=== PATIENT | female | born 1965 | race Caucasian/White ===

== ENCOUNTER 2021-07-05 01:22 | Inpatient (IN) | payer OTHER ==
[~2021-07-05] VITALS: Ht 152.4 cm; Wt 101.8 kg
--- NOTE | 2021-07-05 04:14 | NUR ---
Pt. arrived to the floor via ems, pt. able to transfer self to bed. Pt. is A&OX3, assessment complete. INT to rt. ac X2, patent. Pt. denies pain or other needs, call light within reach.
[2021-07-05] MEDS ORDERED: CYMBALTA 60MG60 MG PO (04:16)
[2021-07-05] MEDS ORDERED: HCTZ 25MG TAB25 MG PO (04:16)
[2021-07-05] MEDS ORDERED: TENORMIN 2525 MG/TAB PO (04:17)
[2021-07-05] MEDS ORDERED: TYLENOL 500MG500 MG PO (04:18)
[2021-07-05 04:26] VITALS: BP 94/71; PULSE 95; TEMP 98.2
[2021-07-05 05:28] LABS: COLLECTION METHOD CATHETER
[2021-07-05 05:40] LABS: MUCOUS Present (NOT PRESENT); PH 6 (5-8); SQUAMOUS EPITHELIAL None Seen /hpf (0-10); URINE APPEARANCE Turbid (CLEAR/HAZY); URINE BACTERIA Many /hpf (NONE SEEN); URINE BILIRUBIN Negative (NEGATIVE); URINE BLOOD 2+ (NEGATIVE); URINE COLOR Amber (YELLOW); URINE GLUCOSE Negative (NEGATIVE); URINE KETONE Negative (NEGATIVE); URINE LEUKOCYTE ESTERASE 2+ (NEGATIVE); URINE NITRATE Negative (NEGATIVE); URINE PROTEIN(semi-quant) 2+ (NEGATIVE); URINE RBC 20-50 /hpf (0-2)
[2021-07-05 06:17] LABS: HEMOGLOBIN 10.5 g/dl (12.5-16.0); MEAN CELL VOLUME 89 fl (80.0-100.0); MEAN CORPUSCULAR HEMOGLOBIN 30 pg (27-31); MEAN CORPUSCULAR HGB CONC 33 g/dl (33.0-37.0); MEAN PLATELET VOLUME 9.2 fl (7.4-10.4); PLATELET COUNT 595 K/mm3 (130-400); RED BLOOD COUNT 3.56 M/mm3 (4.10-5.30); REDCELL DISTRIBUTION WIDTH-CV 14.5 % (11.5-14.5)
[2021-07-05 06:23] LABS: HEMATOCRIT 31.7 % (37.0-47.0)
[2021-07-05 06:38] LABS: CALCIUM 8.5 mg/dL (8.4-10.2); CREATININE, serum 0.7 mg/dL (0.57-1.11)
[2021-07-05 06:52] LABS: POTASSIUM 2.5 mmol/L (3.5-4.5)
[2021-07-05 06:53] LABS: TROPONIN-I 1.362 ng/mL (0.00-0.033)
[2021-07-05 07:01] LABS: BAND 10 % (0-10); EOSINOPHIL 1 % (0-4); LYMPHOCYTE 23 % (20.0-51.0); NEUTROPHILS 62 % (42.0-75.2)
[2021-07-05 07:02] LABS: PLATELET ESTIMATE INCREASED (NORMAL)
[2021-07-05 07:03] LABS: STOMATOCYTE 1+
[2021-07-05 08:00] VITALS: BP 90/44; PULSE 105; TEMP 98
--- NOTE | 2021-07-05 08:19 | NUR ---
Pt assessment complete. Pt is laying in bed upon entry, she is A/O x4. Her breathing is even and unlabored on RA. Pt denies SOB. No pain at this time. She denies any N/V, denies any diarrhea. Currently NPO, discussed POC with patient who verbalizes understanding. IVF infusing wihtout issues. No needs at this time. Call light within reach.
--- NOTE | 2021-07-05 10:26 | NUR ---
Initial visit; Patient thanked Lighting Director for offering God's blessings and keeping her in Lighting Director's prayers.
[2021-07-05 12:04] VITALS: BP 94/43; PULSE 100; TEMP 98
--- NOTE | 2021-07-05 13:32 | NUR ---
Mounter Automatic met with patient to discuss discharge planning. Patient lives alone in [place], [place] and sees Dr. Ramirez for primary care. Patient obtains medications from [facility] in [place] with no difficulties. Patient does not use any DME and is independent with ADLS. Patient expressed interest in designating her son, Jonathan (ph#[phone]) as DPOA-HC. When SW returned with the DPOA-HC form, patient was on the phone and asked SW to follow up later. SW attempted to follow up, however patient was asleep and did not wake after SW knocked. Discharge Plan: Home
[2021-07-05 15:26] VITALS: BP 96/59; PULSE 100; TEMP 98.6
[2021-07-05 19:36] VITALS: BP 104/55; PULSE 96; TEMP 98
--- NOTE | 2021-07-05 20:22 | NUR ---
Patient assessed at this time. Alert and oriented, and able to make needs known. Denies having pain and discomfort at this time. Peripheral IV to right AC with IV fluids running per orders. INT to right AC area as well. Potassium came back at 2.9. Orders placed to replace per protocol and started per orders. Updated patient on labs and treatment and voiced understanding. Denies having SOB and dyspnea. LS CTA. HRR. Telemetry in place. BSAx4. Denies abdominal pain and nausea at this time. Denies having loose stools today. Voices no questions, needs, or concerns at this time. IN bed with call light within reach.
[2021-07-05 23:43] VITALS: BP 107/57; PULSE 100; TEMP 98.8
[2021-07-06 03:50] VITALS: BP 125/71; PULSE 109; TEMP 98.7
--- NOTE | 2021-07-06 05:58 | NUR ---
Potassium replaced IV per protocol this shift. One IV site to right AC was painful and irritated, so IV taken out. No complaints regarding remaining IV site to right AC. Has denied having pain and discomfort this shift. Voices no questions, needs, or concerns at this time. States she is ready to eat. Has been NPO, but has had ice chips during the night. In bed with call light within reach.
[2021-07-06 06:57] LABS: HEMOGLOBIN 10.3 g/dl (12.5-16.0); MEAN CELL VOLUME 91 fl (80.0-100.0); MEAN CORPUSCULAR HEMOGLOBIN 30 pg (27-31); MEAN CORPUSCULAR HGB CONC 33 g/dl (33.0-37.0); MEAN PLATELET VOLUME 9.3 fl (7.4-10.4); PLATELET COUNT 622 K/mm3 (130-400); RED BLOOD COUNT 3.44 M/mm3 (4.10-5.30); REDCELL DISTRIBUTION WIDTH-CV 14.5 % (11.5-14.5)
[2021-07-06 06:58] LABS: HEMATOCRIT 31.3 % (37.0-47.0)
--- NOTE | 2021-07-06 07:00 | NUR ---
Bedside shift report received, assumed care for weight shifter.
[2021-07-06 07:14] LABS: CALCIUM 8.3 mg/dL (8.4-10.2); CREATININE, serum 0.64 mg/dL (0.57-1.11); MAGNESIUM 1.9 mg/dL (1.6-2.6); POTASSIUM 3.1 mmol/L (3.5-4.5)
[2021-07-06 07:39] LABS: BAND 3 % (0-10); EOSINOPHIL 1 % (0-4); LYMPHOCYTE 8 % (20.0-51.0); NEUTROPHILS 82 % (42.0-75.2)
[2021-07-06 07:40] LABS: MICROCYTOSIS 1+; PLATELET ESTIMATE INCREASED (NORMAL); POLYCHROMASIA 1+
[2021-07-06 07:48] LABS: TROPONIN-I 0.866 ng/mL (0.00-0.033)
[2021-07-06 07:52] VITALS: BP 129/61; PULSE 105; TEMP 98.4
--- NOTE | 2021-07-06 08:00 | NUR ---
Assessment complete. A&Ox3. Denies pain/nausea/shortness of breath. VS stable. Potassium 3.1 this AM-will replace per protocol. TELE reporting SR. NS@125ml/hr to left AC IV infusting without difficulty. Plan of care discussed for this shift to include meds/calling for questions/concerns. Verbalizes understanding/denies needs. Call light in reach. WIll monitor.
--- NOTE | 2021-07-06 10:30 | NUR ---
Clear liquid diet provided. Tolerating well without nausea. Denies current needs. Call light in reach. Will monitor.
[2021-07-06 12:10] VITALS: BP 107/47; PULSE 107; TEMP 98.5
--- NOTE | 2021-07-06 13:45 | NUR ---
Potassium infusion paused at this time for shower. collection technician notified and monitor removed. IV site wrapped with plastic. Will monitor.
--- NOTE | 2021-07-06 13:52 | NUR ---
stopped by but nothing needed at this time.
--- NOTE | 2021-07-06 14:30 | NUR ---
Bed linens changed. Back to bed at this time. Tele reapplied/potassium infusion started. Denies current needs. Call light in reach. Will monitor.
[2021-07-06 15:52] VITALS: BP 136/54; PULSE 99; TEMP 98.4
--- NOTE | 2021-07-06 16:22 | NUR ---
Dr Martinez notified of Culture and Sensitivity report faxed from [facility].
--- NOTE | 2021-07-06 17:05 | NUR ---
Patient had an uneventful day. Tolerated clear liquid diet with out N/V/Abd Pain. Tele reports SR to ST. Showered this shift-linens changed-tolerated well. Potassium replaced per protocol for 3.1. IV to right forearm flushes well-NS@75ml/hr infusing without difficulty. Denies current needs. Call light in reach. Will monitor.
[2021-07-06 19:48] VITALS: BP 128/54; PULSE 103; TEMP 98.6
[2021-07-06 23:47] VITALS: BP 134/72; PULSE 112; TEMP 98.7
[2021-07-07 03:54] VITALS: BP 122/63; PULSE 108; TEMP 98.7
--- NOTE | 2021-07-07 04:56 | NUR ---
Full body assessment completed and vital signs are WNL. Patient is A&OX3 and pleasant. Tolerating clear liquids this shift and is able to progress to full liquids/blenderized the morning of 07/07. Patient has been up to the bathroom multiple times throughout the night and walks with a steady gait without signs of weakness. Patient informed this nurse at approximately 0 that her mother is in the hospital at [place] and might not make it through tomorrow (07/07) and that she wants to be discharged [facility] in the morning. Hospitalist was informed. This nurse asked the patient if she was wanting to leave AMA, patient said no. Patient has had no complaints of pain throughout the shift. No other complaints were expressed, call light within reach.
--- NOTE | 2021-07-07 07:00 | NUR ---
Bedside shift report received, assumed care for dayshift.
--- NOTE | 2021-07-07 07:35 | NUR ---
Potassium currently infusing at 75mls/hr due to discomfort/burning to site running at 100ml/hr.
--- NOTE | 2021-07-07 07:42 | NUR ---
Assessment complete. A&Ox3. Denies pain/nausea/shortness of breath. VS stable-periods of tachycardia. AM potassium 3.0. Protocol initiated and first bag hung. Has tolerated diet thus far. Ordering full liquid this AM. TELE reporting SR. IV to right AC with NS@75ml/hr infusing without difficulty. Up out of bed independently. Steady gait. States her mother is in the hospital in [place] and is not expected to live through tonight. Very tearful and states she hopes she will be discharged so she can go be with her. Discussed low potassium level and initiating replacement right away and discussing with provider during rounds. Verbalizes understanding. Call light in reach. Will monitor.
[2021-07-07 07:45] VITALS: BP 142/56; PULSE 111; TEMP 98.4
[2021-07-07 08:03] LABS: HEMOGLOBIN 10.8 g/dl (12.5-16.0); MEAN CELL VOLUME 90 fl (80.0-100.0); MEAN CORPUSCULAR HEMOGLOBIN 30 pg (27-31); MEAN CORPUSCULAR HGB CONC 33 g/dl (33.0-37.0); MEAN PLATELET VOLUME 9.2 fl (7.4-10.4); PLATELET COUNT 688 K/mm3 (130-400); RED BLOOD COUNT 3.65 M/mm3 (4.10-5.30); REDCELL DISTRIBUTION WIDTH-CV 14.5 % (11.5-14.5)
--- NOTE | 2021-07-07 08:06 | NUR ---
Call from [employer] stating patients HR 130s-140s. This nurse to room. Patient returning to bed from bathroom. Sat on side of bed to eat breakfast. Denies pain/nausea/shortness of breath. VS stable. States her breakfast is nasty and it got her worked up and then she went to bathroom. Currently HR 106. Instructed to call with any s/s. Verbalizes understanding. Will call to see if the kitchen has anything else to offer for meal.
[2021-07-07 08:07] LABS: HEMATOCRIT 32.9 % (37.0-47.0)
[2021-07-07 08:10] LABS: ALBUMIN 2.2 gm/dL (3.5-5.0); CALCIUM 8.3 mg/dL (8.4-10.2); CREATININE, serum 0.61 mg/dL (0.57-1.11); PHOSPHOROUS 1.7 mg/dL (2.3-4.7)
[2021-07-07 08:54] LABS: EOSINOPHIL 1 % (0-4); LYMPHOCYTE 32 % (20.0-51.0); NEUTROPHILS 60 % (42.0-75.2)
[2021-07-07 08:56] LABS: HYPOCHROMIA 1+; PLATELET ESTIMATE INCREASED (NORMAL)
--- NOTE | 2021-07-07 09:20 | NUR ---
Noted to have a HR in the 140s on TELE monitor. Up to bathroom-had a BM. Seems more upset and short with staff. This nurse tried to discuss with patient but states she doesnt want to talk about it. Encouraged if she changed mind to let this nurse know. Verbalizes understanding. Call light in reach. Will monitor.
--- NOTE | 2021-07-07 10:30 | NUR ---
hyperbaric technician notified that patient is up to shower. Potassium/IV fluids paused and INT wrapped in plastic/taped. Instructed to call when done in shower to restart fluids/potassium infusions. Will monitor.
--- NOTE | 2021-07-07 11:03 | NUR ---
Out of shower at this time. TELE reapplied. Potassium/NS restarted to right AC INT-infusing without difficulty. Patient with questions on low fiber diet. Patient education printed and information provided.
[2021-07-07 11:43] VITALS: BP 107/49; PULSE 108; TEMP 98.3
--- NOTE | 2021-07-07 12:10 | NUR ---
Dr Martinez at bedside to see patient
--- NOTE | 2021-07-07 12:13 | NUR ---
cnc technician called with reports of HR in the 130s. Patient currently up to the bathroom. Denies chest pain/shortness of breath/nausea. VS remain stable. Will continue to monitor.
--- NOTE | 2021-07-07 12:23 | NUR ---
IV fluids DCd at this time per dr order.
--- NOTE | 2021-07-07 12:58 | NUR ---
Tolerated low fiber diet without nausea/pain. Resting in bed. Will monitor.
[2021-07-07 15:40] VITALS: BP 117/66; PULSE 108; TEMP 98.9
--- NOTE | 2021-07-07 16:32 | NUR ---
Patient had an uneventful day. Potassium was 3.0 this AM. Received replacement per protocol. INTd per dr order. Tolerating low fiber diet. Has been switched to PO antibiotics. HR up to 130-140s when up out of bed, otherwise 100s. Denied pain/nausea/shortness of breath. VS remained stable. Patient excited to DC home in AM. Denies current needs. Call light in reach. Will monitor.
[2021-07-07 19:25] VITALS: BP 126/81; PULSE 115; TEMP 99
[2021-07-07 23:43] VITALS: BP 130/58; PULSE 111; TEMP 99.7
[2021-07-08 03:43] VITALS: BP 136/65; PULSE 114; TEMP 99.5
--- NOTE | 2021-07-08 04:14 | NUR ---
RESTING QUIETLY/SLEEPING. NO C/O PAIN. NO N/V. INDEPENDENT IN ROOM.
[2021-07-08 06:56] LABS: CALCIUM 8.6 mg/dL (8.4-10.2); CREATININE, serum 0.66 mg/dL (0.57-1.11); MAGNESIUM 1.7 mg/dL (1.6-2.6); POTASSIUM 3.5 mmol/L (3.5-4.5)
[2021-07-08 07:19] VITALS: BP 114/67; PULSE 101; TEMP 98.6
--- NOTE | 2021-07-08 08:36 | NUR ---
Pt doing well this morning, no pain complaints. Pt is planning on going home today. Notified Danita HOPKINS as pt stated that she will need to leave by 1000 as that is the only time she will have a ride. Pt denies having any pain. No needs verbalized, call light within reach
[2021-07-08] MEDS ORDERED: ASPIRIN E.C. 8181 MG PO (09:13)
[2021-07-08] MEDS ORDERED: FLAGYL500 MG PO (09:18)
[2021-07-08] MEDS ORDERED: OMNICEF 300MG300 MG PO (09:19)
--- NOTE | 2021-07-08 09:21 | NUR ---
Materials Scientist attended clinical rounds with the team and patient to discharge home today. SW followed up with patient after rounds and patient denied any questions or concerns. SW offered to assist patient with completing DPOA-HC form. Patient declined but requested form. SW provided.
[2021-07-08] MEDS ORDERED: ACIDOPHILIS PO (09:23)
--- NOTE | 2021-07-08 10:00 | NUR ---
Reviewed discharge instructions with pt to include follow up appointments and prescriptions. Pt verbalized understanding, all questions answered. INT removed from right ac. Informed pt notify nursing when her ride arrives.
--- NOTE | 2021-07-08 10:20 | NUR ---
Pt escorted out at this time
== END 2021-07-08 10:21 | disposition home or self-care (01) | DRG 871 ==
LOC: MEDICAL 01:22 → SURG 03:27 → MEDICAL 03:27 → SURG 07-08 10:21
PROVIDERS: Nurse Practitioner Family; Surgery; ADMIT Internal Medicine
DX: A41.9 Sepsis, unspecified organism (principal); I21.A1 Myocardial infarction type 2; E87.1 Hypo-osmolality and hyponatremia; N39.0 Urinary tract infection, site not specified; N32.1 Vesicointestinal fistula; K57.20 Diverticulitis of large intestine with perforation and abscess without bleeding; Z68.42 Body mass index [BMI] 45.0-49.9, adult; I10 Essential (primary) hypertension; D75.839 Thrombocytosis, unspecified; F32.A Depression, unspecified; M41.9 Scoliosis, unspecified; F17.210 Nicotine dependence, cigarettes, uncomplicated; E87.8 Other disorders of electrolyte and fluid balance, not elsewhere classified; E87.6 Hypokalemia; E66.01 Morbid (severe) obesity due to excess calories; F12.90 Cannabis use, unspecified, uncomplicated; B96.20 Unspecified Escherichia coli [E. coli] as the cause of diseases classified elsewhere; Z88.0 Allergy status to penicillin; Z23 Encounter for immunization
CPT/HCPCS: 99223-AI; 99232-AI; 99239; J0696; J1170; J1650; J1956; J3480; J7030

== ENCOUNTER 2021-07-17 10:01 | Inpatient (IN) | payer OTHER ==
[~2021-07-17] VITALS: Ht 152.4 cm; Wt 91.1 kg
[~2021-07-17 10:01] MED LIST: ACIDOPHILIS PO; ASPIRIN E.C. 8181 MG PO; CYMBALTA 60MG60 MG PO; FLAGYL500 MG PO; HCTZ 25MG TAB25 MG PO; OMNICEF 300MG300 MG PO; TENORMIN 2525 MG/TAB PO; TYLENOL 500MG500 MG PO
--- NOTE | 2021-08-28 08:00 | NUR ---
The patient ambulated back to [place] [facility] independently using a steady gait and appeared to tolerate the activity well. Vital signs obtained. Consent signed. 18G IV started in right hand with one stick, LR Infusing without difficulty. Blood obtained from IV start for labs as ordered. Portable chest x-ray obtained by contact lens technician. Call light is within reach. Son is be brought back to be at her bedside. Warm blankets provided. Denies any further needs at this time.
[2021-08-28 08:09] LABS: BASO # 0.1 K/mm3 (0.0-0.2); BASO % 0.3 % (0.0-2.0); EOS # 0.1 K/mm3 (0.0-0.7); EOS % 0.5 % (0.0-4.0); GRAN # 13.9 K/mm3 (1.4-6.5); GRAN % 78.7 % (42.2-75.2); HEMOGLOBIN 14.4 g/dl (12.5-16.0); LYMPH # 2.8 K/mm3 (1.2-3.4); LYMPH % 15.7 % (20.0-51.0); MEAN CELL VOLUME 90 fl (80.0-100.0); MEAN CORPUSCULAR HEMOGLOBIN 30 pg (27-31); MEAN CORPUSCULAR HGB CONC 34 g/dl (33.0-37.0); MEAN PLATELET VOLUME 9.5 fl (7.4-10.4); MONO # 0.7 K/mm3 (0.1-0.6); MONO % 4.1 % (1.7-9.3); PLATELET COUNT 586 K/mm3 (130-400); RED BLOOD COUNT 4.77 M/mm3 (4.10-5.30); REDCELL DISTRIBUTION WIDTH-CV 13.9 % (11.5-14.5)
[2021-08-28 08:20] LABS: ALBUMIN 3.5 gm/dL (3.5-5.0); BILIRUBIN,TOTAL 0.4 mg/dL (0.2-1.2); CALCIUM 10.6 mg/dL (8.4-10.2); CREATININE, serum 1.06 mg/dL (0.57-1.11); TOTAL PROTEIN 8.7 gm/dL (6.2-8.1)
[2021-08-28 08:26] LABS: POTASSIUM 2.6 mmol/L (3.5-4.5)
[2021-08-28 08:33] VITALS: BP 126/53; PULSE 100; TEMP 97
--- NOTE | 2021-08-28 08:39 | NUR ---
Dr. Nguyen was notified of the patient's potassium level of 2.6. He verbalized understanding and gave orders to start the potassium replacement protocol and for the patient to be transferred up to the 3rd floor.
--- NOTE | 2021-08-28 08:59 | NUR ---
Flagyl was stopped and capped at this time. 10 meq of Potassium IV was started according to the protocol in place. The patient reports some burning with infusion so the LR rate was increased she it appeared to help with the burning. Son remains at bedside. Call light is within reach. Telemetry was placed on the patient prior to the potassium being started.
[2021-08-28] MEDS ORDERED: RESTORIL 1515 MG/CAP PO (09:03)
--- NOTE | 2021-08-28 09:22 | NUR ---
Report was given to KARLEY Samayoa who will be assuming care of the patient on the 3rd floor. She verbalized understanding and questions were answered at this time.
--- NOTE | 2021-08-28 09:25 | NUR ---
The patient was trasnferred up to room 330 via cart at this time. The patient's belongings and chart were sent with her. The patient's son escorted the patient upstairs. KARLEY Samayoa was at the patient's bedside to assume the care of the patient. Call light is within reach. The patient denies any further needs at this time.
[2021-08-28 09:50] VITALS: BP 121/60; PULSE 72; TEMP 98.7
--- NOTE | 2021-08-28 10:00 | NUR ---
Pt recently arrived to the floor from ambulatory. Pt is alert and oriented, son present with her. Pt aware of the plan of replacing her potassium and rechecking to determine if surgery can take place today. Pt is not able to tolerated the potassium infusing at normal rate. Discussed her getting a PICC line with Dr Nguyen, he was okay with this. Discussed this with pt and called [facility].
[2021-08-28 12:00] VITALS: BP 94/55; PULSE 74; TEMP 98.8
--- NOTE | 2021-08-28 12:19 | NUR ---
PICC line placed and potassium changed to 20meq. Pt is now on full liquid/blendarized diet which she is aware of.
[2021-08-28 14:05] VITALS: BP 94/55; PULSE 74; TEMP 98.8
--- NOTE | 2021-08-28 14:48 | NUR ---
Pt doing okay. She is on her last bag of potassium at this time. She is tolerating the full liquids with no complaints. Pt is aware that she will not be having surgery until Thursday. Pt is having complaints of a headache, PRN tylenol given
[2021-08-28 15:53] VITALS: BP 96/53; PULSE 65; TEMP 98.6
[2021-08-28 20:59] VITALS: BP 103/46; PULSE 67; TEMP 98.2
--- NOTE | 2021-08-28 21:24 | NUR ---
PT TAKING A WALK BETWEEN POTTASSIUM INFUSIONS. DENIES PAIN. INDEPENDENT IN ROOM. NO COMPLAINTS AT THIS TIME. CALL LIGHT IN REACH. RESUMED LAST BAG K+.
--- NOTE | 2021-08-28 21:42 | NUR ---
PROVIDED PT EDUCATION ON HYPOKALEMIA.
--- NOTE | 2021-08-28 23:20 | NUR ---
TELEMETRY CALLED REPORTING PVC'S AND PJC'S. NOTIFIED [facility]. SEE NEW ORDERS FOR LAB- BMP& MAG.
[2021-08-29] VITALS: BP 103/50; PULSE 83; TEMP 98
--- NOTE | 2021-08-29 01:20 | NUR ---
LAB RESULTS CALLED TO [facility]. SEE NEW ORDER FOR K+ 40Meq IV.
--- NOTE | 2021-08-29 01:23 | NUR ---
20Meq K+ STARTED FIRST BAG. ORDERED.
--- NOTE | 2021-08-29 01:23 | NUR ---
20Meq K+ 2ND BAG STARTED.
--- NOTE | 2021-08-29 01:35 | NUR ---
RECHECKED BP 102/50
[2021-08-29 04:10] VITALS: BP 90/48; PULSE 74; TEMP 97.6
--- NOTE | 2021-08-29 05:46 | NUR ---
PT HAS SLEPT WELL THIS SHIFT. NO COMPLAINTS THIS AM
[2021-08-29 06:32] LABS: HEMATOCRIT 39.3 % (37.0-47.0); HEMOGLOBIN 12.8 g/dl (12.5-16.0); MEAN CELL VOLUME 93 fl (80.0-100.0); MEAN CORPUSCULAR HEMOGLOBIN 30 pg (27-31); MEAN CORPUSCULAR HGB CONC 33 g/dl (33.0-37.0); MEAN PLATELET VOLUME 9.9 fl (7.4-10.4); RED BLOOD COUNT 4.21 M/mm3 (4.10-5.30); REDCELL DISTRIBUTION WIDTH-CV 14.1 % (11.5-14.5)
[2021-08-29 06:40] LABS: PLATELET COUNT 468 K/mm3 (130-400)
[2021-08-29 06:46] LABS: C-REACTIVE PROTEIN 4.22 mg/dL (0.00-0.50); CALCIUM 8.8 mg/dL (8.4-10.2); CREATININE, serum 0.75 mg/dL (0.57-1.11); POTASSIUM 4.1 mmol/L (3.5-4.5)
[2021-08-29 08:09] VITALS: BP 112/64; PULSE 84; TEMP 97.4
--- NOTE | 2021-08-29 08:50 | NUR ---
PT SITTING UP IN CHAIR ON ROOM AIR. PT STATES THAT SHE HAD A GOOD NIGHT AND WAS ABLE TO SLEEP A LITTLE BIT. PT STATES THAT SHE GOT HER BREAKFAST AND TRIED TO EAT IT BUT "IT HAD A BUNCH OF HAIRS IN IT." PT STATES THAT SHE DID GET ANOTHER TRAY ORDERED. I OFFERED HER SOMETHING FROM OUR KITCHEN TO HOLD HER OVER AND SHE STATES THAT SHE WILL JUST WAIT UNTIL HER OTHER TRAY COMES. PT STATES NO PAIN OR DISCOMFORT AT THIS TIME. PT STATES "I AM DOING OK, I AM JUST READY TO GET MY SURGERY DONE AND OVERWITH." PT STATES NO NEEDS AT THIS TIME. CALL LIGHT IS WITH IN REACH.
--- NOTE | 2021-08-29 09:25 | NUR ---
Museum Or Zoo Director met with patient to discuss discharge planning. Patient lives alone in [place] and sees Dr. Ramirez for primary care. Patient obtains medications from [facility] in [place] with no difficulties. Patient does not use any DME and is independent with ADLS. Patient reports she has Advance Directives completed. Patient plans to return home at time of discharge. Discharge Plan: Home
--- NOTE | 2021-08-29 10:19 | NUR ---
Initial visit; Patient thanked Solar Sales Advisor for looking in on her and offering God's blessings. Patient spoke of her care here being good although she has some legitimate complaints regarding Manager Validation. Solar Sales Advisor suggested she go to the source and make a complaint. Solar Sales Advisor will keep Ashley in her prayers as she will be in surgery this morning. Solar Sales Advisor will follow up.
[2021-08-29 10:37] LABS: CALCIUM 8.7 mg/dL (8.4-10.2); CREATININE, serum 0.8 mg/dL (0.57-1.11); MAGNESIUM 1.9 mg/dL (1.6-2.6); POTASSIUM 3.6 mmol/L (3.5-4.5)
[2021-08-29 12:03] VITALS: BP 114/78; PULSE 70; TEMP 98
[2021-08-29 15:47] VITALS: BP 112/60; PULSE 82; TEMP 98
--- NOTE | 2021-08-29 18:54 | NUR ---
PT SITTING UP IN CHAIR ON ROOM AIR. PT STATES NO PAIN OR NEEDS AT THIS TIME. PT STATES "I AM JUST HANGING OUT UNTIL SURGERY TOMORROW." CALL LIGHT IS WITHIN REACH.
[2021-08-29 20:36] VITALS: BP 101/46; PULSE 71; TEMP 97.9
--- NOTE | 2021-08-29 20:45 | NUR ---
Pt. sitting up in chair. Pt. is A&OX3, assessment complete. PICC to rt. upper arm patent. Pt. denies pain or other needs, call light within reach.
[2021-08-30] VITALS (12 sets, daily range): BP systolic 85–127; BP diastolic 44–72; PULSE 86–103; TEMP 97.9–98.7
[2021-08-30 06:48] LABS: BASO # 0.1 K/mm3 (0.0-0.2); EOS # 0.4 K/mm3 (0.0-0.7); EOS % 3.3 % (0.0-4.0); GRAN # 6.4 K/mm3 (1.4-6.5); GRAN % 55.6 % (42.2-75.2); HEMATOCRIT 38.3 % (37.0-47.0); HEMOGLOBIN 12.3 g/dl (12.5-16.0); LYMPH # 3.5 K/mm3 (1.2-3.4); LYMPH % 30.8 % (20.0-51.0); MEAN CELL VOLUME 94 fl (80.0-100.0); MEAN CORPUSCULAR HEMOGLOBIN 30 pg (27-31); MEAN CORPUSCULAR HGB CONC 32 g/dl (33.0-37.0); MEAN PLATELET VOLUME 9.9 fl (7.4-10.4); MONO % 8.3 % (1.7-9.3); PLATELET COUNT 377 K/mm3 (130-400); RED BLOOD COUNT 4.07 M/mm3 (4.10-5.30)
--- NOTE | 2021-08-30 08:00 | NUR ---
Pt doing okay this morning, she is ready for surgery. Unsure of potassium at this time due to down equipment. Pt does not have any questions regarding surgery, no pain complaints at this time
[2021-08-30 08:09] LABS: CALCIUM 9.3 mg/dL (8.4-10.2); CREATININE, serum 0.78 mg/dL (0.57-1.11); POTASSIUM 3.8 mmol/L (3.5-4.5)
--- NOTE | 2021-08-30 08:40 | NUR ---
Pt off the floor for surgery
--- NOTE | 2021-08-30 11:19 | NUR ---
SW and physician attempted to complete rounds with patient. Informed that patient was in surgery. SW will continue to follow.
--- NOTE | 2021-08-30 15:14 | NUR ---
Pt back from OR. She is very drowsy and does have complaints of pain with movement. Incisions are all well approximated with no redness or drainage noted. SCDs on bilaterally. Gandhi to dependent drainage. Pt did wake and ask if she had a colostomy, informed her she does not. Pt was relieved and then did fall back asleep. Call light within reach, will continue to monitor.
--- NOTE | 2021-08-30 18:15 | NUR ---
Pt doing well since getting back from surgery. She is rating her pain 7/10 with cough/movement but denies the need for any additional pain medication. Reports the scheduled medication is okay for now. Clear liquid diet ordered for her. Educated on incentive spirometer as pt is more awake now. Pt does have slight cough and is coughing up some thick sputum. Educated to use pillow for splinting with cough. No other needs, call light within reach
--- NOTE | 2021-08-30 19:44 | NUR ---
ASSESSMENT COMPLETE. PT. RESTING IN BED. A&O. ABDOMEN SITES CDI X6. HOPSON DRAINING DEPENDENT TO GRAVITY. FLUIDS INFUSING THROUGH RIGHT UPPER ARM PICC AT 75ML/HR. NO COMPLAINTS OF NAUSEA. OCCASIONALLY SPASMS OF ABDOMINAL PAIN. CALL LIGHT IN REACH. NO FURTHER NEEDS AT THIS TIME.
[2021-08-31 03:42] VITALS: BP 98/58; PULSE 102; TEMP 98.5
--- NOTE | 2021-08-31 05:20 | NUR ---
DR. LAGUERRE NOTIFIED THAT LATEST BLOOD PRESSURE WAS 98/58 AND HEART RATE WAS 102. HE ORDERED A LACTIC ACID LAB AND A BOLUS OF 500ML OF LR OVER 2 HR. WILL CONTINUE TO MONITOR.
[2021-08-31 06:23] LABS: HEMOGLOBIN 10.6 g/dl (12.5-16.0)
[2021-08-31 06:31] LABS: CREATININE, serum 0.78 mg/dL (0.57-1.11); MAGNESIUM 1.9 mg/dL (1.6-2.6); PHOSPHOROUS 1.9 mg/dL (2.3-4.7); POTASSIUM 4.1 mmol/L (3.5-4.5)
[2021-08-31 06:34] LABS: HEMATOCRIT 32.4 % (37.0-47.0)
[2021-08-31 07:42] VITALS: BP 118/51; PULSE 90; TEMP 98.4
--- NOTE | 2021-08-31 08:00 | NUR ---
Patient sitting up in bed, A&Ox4. VSS. IV CDI, fluids infusing. Lap sites x6 abdomen CDI. Pillow on abdomen to help brace. Gandhi intact. ERAS in place. Patient ambulating in the chilel with nursing staff. Tolerating clear liquids. Call light within reach
[2021-08-31 12:17] VITALS: BP 108/51; PULSE 89; TEMP 98.4
[2021-08-31 16:16] VITALS: BP 110/43; PULSE 89; TEMP 98.2
--- NOTE | 2021-08-31 17:49 | NUR ---
Patient had a large loose BM after diet advanced to low fiber. Patient tolerating PO intake. A&Ox4. VSS. IV CDI. Denies pain when at rest. Pillow on abdomen for comfort. Gandhi intact. Lap sites abdomen x6 CDI. Call light within reach
[2021-08-31 20:00] VITALS: BP 122/55; PULSE 71; TEMP 98.6
--- NOTE | 2021-08-31 20:25 | NUR ---
ASSESSMENT COMPLETE. PT. LYING IN BED WATCHING TV. A&O. HOPSON DEPENDENT TO DRAINAGE. ABDOMEN X6 CDI. PICC TO RIGHT UPPER ARM. NO COMPLAINTS OF NAUSEA. PAIN 10/06. WILL WAIT UNTIL NEXT DOSE OF MOTRIN IS DUE. CALL LIGHT IN REACH. NO FURTHER NEEDS AT THIS TIME.
[2021-09-01] VITALS (7 sets, daily range): BP systolic 108–125; BP diastolic 48–67; PULSE 91–106; TEMP 97.7–99.2
[2021-09-01 05:59] LABS: BASO # 0.1 K/mm3 (0.0-0.2); BASO % 0.4 % (0.0-2.0); EOS # 0.2 K/mm3 (0.0-0.7); EOS % 1.8 % (0.0-4.0); GRAN # 7.8 K/mm3 (1.4-6.5); GRAN % 66.8 % (42.2-75.2); HEMOGLOBIN 10.2 g/dl (12.5-16.0); LYMPH # 2.6 K/mm3 (1.2-3.4); LYMPH % 22.3 % (20.0-51.0); MEAN CELL VOLUME 94 fl (80.0-100.0); MEAN CORPUSCULAR HEMOGLOBIN 30 pg (27-31); MEAN CORPUSCULAR HGB CONC 32 g/dl (33.0-37.0); MEAN PLATELET VOLUME 9.8 fl (7.4-10.4); MONO # 0.9 K/mm3 (0.1-0.6); MONO % 7.3 % (1.7-9.3); PLATELET COUNT 317 K/mm3 (130-400); RED BLOOD COUNT 3.39 M/mm3 (4.10-5.30); REDCELL DISTRIBUTION WIDTH-CV 14.4 % (11.5-14.5)
--- NOTE | 2021-09-01 05:59 | NUR ---
PT. HAD AN UNEVENTFUL NIGHT SLEEPING. NO NEEDS.
[2021-09-01 06:12] LABS: HEMATOCRIT 31.9 % (37.0-47.0)
[2021-09-01 06:25] LABS: ALBUMIN 2.2 gm/dL (3.5-5.0); CALCIUM 8.6 mg/dL (8.4-10.2); CREATININE, serum 0.7 mg/dL (0.57-1.11); PHOSPHOROUS 2.3 mg/dL (2.3-4.7); POTASSIUM 3.6 mmol/L (3.5-4.5)
--- NOTE | 2021-09-01 17:05 | NUR ---
RECEIVED REPORT FROM DAY SHIFT RN, RAZIA.
--- NOTE | 2021-09-01 19:00 | NUR ---
CHANGE OF SHIFT REPORT GIVEN TO HANDLE ROUNDER OPERATOR RN, ESTRELLA.
--- NOTE | 2021-09-01 19:30 | NUR ---
PT RESTING IN BED. IS ALERT AND ORIENTED X4. HAS ROBOTIC SITES X6 TO ABD, GLUED AND DRY. PT REPORTS HAVING STOOLS, NO DIARRHEA. HAS RT PICC, FLUSHES WELL WITH GOOD BLOOD RETURN. INDEPENDENT IN ROOM. HOPSON TO BSD WITH YELLOW URINE. PT REPORTS PLANNED DISCHARGE ON THURSDAY.
[2021-09-02 03:37] VITALS: BP 127/57; PULSE 94; TEMP 98.2
--- NOTE | 2021-09-02 05:45 | NUR ---
PT HAS RESTED WELL THIS SHIFT. TAKING ONLY SCHEDULED PAIN MEDS. LABS OBTAINED FROM RT PICC THIS AM.
[2021-09-02 06:47] LABS: MEAN CELL VOLUME 94 fl (80.0-100.0); MEAN CORPUSCULAR HGB CONC 32 g/dl (33.0-37.0); MEAN PLATELET VOLUME 10.2 fl (7.4-10.4); PLATELET COUNT 359 K/mm3 (130-400); REDCELL DISTRIBUTION WIDTH-CV 14.4 % (11.5-14.5)
[2021-09-02 06:50] LABS: HEMATOCRIT 30.9 % (37.0-47.0); HEMOGLOBIN 9.9 g/dl (12.5-16.0); MEAN CORPUSCULAR HEMOGLOBIN 30 pg (27-31)
[2021-09-02 07:14] VITALS: BP 119/73; PULSE 100; TEMP 98.1
[2021-09-02 07:47] LABS: BAND 3 % (0-10); BASOPHIL 1 % (0-2)
[2021-09-02 07:48] LABS: EOSINOPHIL 5 % (0-4); HYPOCHROMIA 1+; LYMPHOCYTE 27 % (20.0-51.0); NEUTROPHILS 57 % (42.0-75.2); PLATELET ESTIMATE NORMAL (NORMAL)
[2021-09-02 11:49] VITALS: BP 124/71; PULSE 96; TEMP 97.7
--- NOTE | 2021-09-02 13:05 | NUR ---
DR.DOERING PADILLA, SEE ORDERS.
--- NOTE | 2021-09-02 13:19 | NUR ---
[facility] CALLED TO REMOVE PICC LINE FOR DISCHARGE.
--- NOTE | 2021-09-02 13:25 | NUR ---
[facility] AT BEDSIDE REMOVING PICC LINE IN RUE.
--- NOTE | 2021-09-02 14:00 | NUR ---
PATIENT DISCHARGING HOME. GAVE DISCHARGE INSTRUCTIONS AND DISCUSSED F/U APT. ANSWERED QUESTIONS/CONCERNS. [facility] DC'D PICC LINE AND DRESSING INPLACE. PATIENT IS DRESSED, PACKED AND DISCHARGED.
== END 2021-09-02 14:00 | disposition home or self-care (01) | DRG 330 ==
LOC: SURG 07-24 13:15 → INPTSU 08-28 07:12 → SURG 08-28 07:12
PROVIDERS: Student in an Organized Health Care Education/Training Program; Surgery; Urology; ADMIT Surgery
PROC: 02HV33Z Insertion of Infusion Device into Superior Vena Cava, Percutaneous Approach (ICD-10-PCS; 2021-08-28)
PROC: 8E0W3CZ Robotic Assisted Procedure of Trunk Region, Percutaneous Approach (ICD-10-PCS; 2021-08-30)
PROC: 4A1BXSH Monitoring of Gastrointestinal Vascular Perfusion using Indocyanine Green Dye, External Approach (ICD-10-PCS; 2021-08-30)
PROC: 0DTN4ZZ Resection of Sigmoid Colon, Percutaneous Endoscopic Approach (ICD-10-PCS; principal; 2021-08-30 09:00)
PROC: 0DJD8ZZ Inspection of Lower Intestinal Tract, Via Natural or Artificial Opening Endoscopic (ICD-10-PCS; 2021-08-30 09:00)
DX: K57.20 Diverticulitis of large intestine with perforation and abscess without bleeding (principal); N32.1 Vesicointestinal fistula; Z68.42 Body mass index [BMI] 45.0-49.9, adult; I10 Essential (primary) hypertension; E87.6 Hypokalemia; I25.2 Old myocardial infarction; G62.9 Polyneuropathy, unspecified; F32.A Depression, unspecified; F41.9 Anxiety disorder, unspecified; E83.39 Other disorders of phosphorus metabolism; M41.9 Scoliosis, unspecified; E66.01 Morbid (severe) obesity due to excess calories; F17.210 Nicotine dependence, cigarettes, uncomplicated; Z90.710 Acquired absence of both cervix and uterus; Z88.0 Allergy status to penicillin
CPT/HCPCS: 99222; 99231-AI; 99232-AI; A4314; A9284; C1751; C1892; J0330; J0690; J1100; J1650; J1956; J2250; J2405; J2704; J2795; J3010; J3480; J7120